=== PATIENT | female | born 1990 | race American Indian/Alaskan Native ===

== ENCOUNTER 2017-09-27 14:22 | Emergency (ER) | payer BC ==
[2017-09-27 16:05] LABS: Basophils % (Auto) 0.4 % (0.0-1.8); Eosinophils % (Auto) 0.5 % (0.0-4.3); Hematocrit 36.7 % (30.3-42.9); Hemoglobin 12.3 gm/dl (10.1-14.3); Lymphocytes # (Auto) 2.1 K/mm3 (1.2-5.4); Lymphocytes % (Auto) 31.9 % (13.4-35.0); Mean Corpuscular HGB Conc 34 % (30-34); Mean Corpuscular Hemoglobin 32 pg (28-32); Mean Corpuscular Volume 96 fl (79-97); Monocytes # (Auto) 0.7 K/mm3 (0.0-0.8); Monocytes % (Auto) 10.9 % (0.0-7.3); Platelet Count 299 K/mm3 (140-440); Red Blood Count 3.84 M/mm3 (3.65-5.03); Red Cell Distribution Width 13.8 % (13.2-15.2)
[2017-09-27 16:25] LABS: BUN/Creatinine Ratio 11; Blood Urea Nitrogen 10 mg/dL (7-17); Calcium 9.3 mg/dL (8.4-10.2); Hemolysis Index 0
[2017-09-27] MEDS ORDERED: K-DUR PO ONE (16:28)
[2017-09-27] MEDS ORDERED: SUDAFED 12 HR PO PRN (17:22)
[2017-09-27 18:02] LABS: Bilirubin,Urine NEG (Negative); Blood,Urine NEG (Negative); Calcium Oxalate Crystals,Urine 1+; Color,Urine Yellow (Yellow); Mucus,Urine 3+ /HPF; Nitrite,Urine NEG (Negative)
--- NOTE | 2017-09-27 18:07 | Emergency Department Report ---
ED Psych HPI - General Chief Complaint: Psych Stated Complaint: 1013 Time Seen by Provider: 09/27/17 16:27 Source: family Mode of arrival: Ambulatory Limitations: No Limitations - History of Present Illness Initial Comments: 27-year-old female with a past medical history of bipolar and PTSD presents to Hospital from her psychiatrist's office with a signed 1013. As for 1013 patient stated she will hurt herself because she does not exist and I as well be and was in a hospital last week for overdose attempt. According to her mother she walked out of the house and has not been taking care of her personal hygiene for several days. Patient states that she lives with her father. Patient has a lot of methodist delusions while in the ed. She denies suicidal or homicidal ideation to me when asked directly. She c/o chronic ongoing knee pain to patellar issues an ongoing sinus issues with nasal congestion been no reports of fever or cough. She denied hallucinations to me stating she only hears her own voice by as per 1013 patient had auditory and visual hallucinations of her parents exhibiting paranoia and a labile affect with tangential illogical thoughts. - Related Data Home Medications Medication Instructions Recorded Confirmed Last Taken FLUoxetine HCL [PROzac] 40 mg PO QDAY 09/27/17 09/27/17 Unknown lamoTRIgine [LaMICtal] 100 mg PO QDAY 09/27/17 09/27/17 Unknown traZODone [Desyrel] 100 mg PO QHS 09/27/17 09/27/17 Unknown Allergies Allergy/AdvReac Type Severity Reaction Status Date / Time No Known Allergies Allergy Unverified 09/27/17 14:37 ED Review of Systems ROS: Stated complaint: 1013 Other details as noted in HPI ED Past Medical Hx - Past Medical History Previous Medical History?: Yes Hx Psychiatric Treatment: Yes (Bipolar, PTSD (Dr. Giang)) - Surgical History Past Surgical History?: No - Social History Smoking Status: Never Smoker Substance Use Type: Alcohol, Marijuana - Medications Home Medications: Home Medications Medication Instructions Recorded Confirmed Last Taken Type FLUoxetine HCL [PROzac] 40 mg PO QDAY 09/27/17 09/27/17 Unknown History lamoTRIgine [LaMICtal] 100 mg PO QDAY 09/27/17 09/27/17 Unknown History traZODone [Desyrel] 100 mg PO QHS 09/27/17 09/27/17 Unknown History ED Physical Exam - General Limitations: Altered Mental Status - Other Other exam information: General: No limitations, patient is alert in no acute distress Head exam: Atraumatic, normocephalic Eyes exam: Normal appearance, pupils equal reactive to light, extraocular movements intact ENT: Moist mucous membrane, normal oropharynx no exudate Neck exam: Normal inspection, full range of motion, no meningismus nontender Respiratory exam: Clear to auscultation bilateral, no wheezes, rales, crackles Cardiovascular: Normal rate and rhythm, normal heart sounds Abdomen: Soft, nondistended, and nontender, with normal bowel sounds, no rebound, or guarding Extremity: Full range of motion normal inspection no deformity Back: Normal Inspection, full range of motion, no tenderness Neurologic: Alert, oriented x3, cranial nerves intact, no motor or sensory deficit Psychiatric: Tangential speech, methodist delusions Skin: Warm, dry, intact ED Course Vital Signs 09/27/17 09/27/17 14:52 17:21 Temperature 98.8 F Pulse Rate 104 H 84 Respiratory 18 Rate Blood Pressure 169/96 Blood Pressure 129/81 [Right] O2 Sat by Pulse 97 100 Oximetry - Reevaluation(s) Reevaluation #1: 09/27/17 18:05 Initial blood pressure was high as well as heart rate but repeat without any intervention shows improvement Reevaluation #2: 09/27/17 18:25 Patient is acutely agitated, paranoid, and uncooperative with staff. I requested that mental health professional to come to see patient prior to receiving Geodon. - Consultations Consultation #1: 09/27/17 18:11 Mental health consult ED Medical Decision Making - Lab Data Result diagrams: 09/27/17 15:30 09/27/17 15:30 - Medical Decision Making Psychosis and possible suicidal ideation 1013 and transfer forms signed Patient is medically cleared Patient required Geodon in the ED due to acute agitation We'll continue patient's reported home and pending psychiatric review Hypokalemia Potassium provided - Differential Diagnosis psychosis, med noncompliance, hallucinations Critical Care Time: No Critical care attestation.: If time is entered above; I have spent that time in minutes in the direct care of this critically ill patient, excluding procedure time. ED Disposition Clinical Impression: Psychosis, Delusions, Suicidal ideation, Hypokalemia, Medical clearance for psychiatric admission Disposition: [id number] PSY HOSP/PSY UNIT Is pt being admited?: No Condition: Stable Time of Disposition: 00:20 (awaiting acceptance)
[2017-09-27 18:08] LABS: Amphetamine Screen,Urine PRESUMPTIVE NEGATIVE; Benzodiazepines Screen,Urine PRESUMPTIVE NEGATIVE; Cocaine Screen,Urine PRESUMPTIVE NEGATIVE; Methadone Screen,Urine PRESUMPTIVE NEGATIVE
[2017-09-27 18:21] LABS: Cannabinoid Screen,Urine PRESUMPTIVE POSITIVE; Opiate Screen,Urine PRESUMPTIVE POSITIVE
[2017-09-27] MEDS ORDERED: GEODON IM ONE (18:25)
[2017-09-28] MEDS ORDERED: ALUM-MAG HYDROX-SIMETH 200-200-20MG/5ML PO PRN (00:21)
[2017-09-28] MEDS ORDERED: TYLENOL PO PRN (00:21)
[2017-09-28] MEDS ORDERED: MILK OF MAGNESIA PO PRN (00:21)
[2017-09-28 08:41] VITALS: BP 155/77
[2017-09-28] MEDS ORDERED: PROzac PO SCH (10:00)
[2017-09-28] MEDS ORDERED: NON-FORMULARY (Fluoxetine Hcl [Prozac] 40 MG) PO SCH (10:00)
[2017-09-28] MEDS ORDERED: LaMICtal PO SCH (10:00)
--- NOTE | 2017-09-28 12:23 | Consultation ---
History of Present Illness - Reason for Consult Consult date: 09/28/17 Reason for consult: Mental Health Evaluation Requesting physician: CALVIN WALTON - Chief Complaint Chief complaint: "I am Susu Krishna" - History of Present Psychiatric Illness 27 y.o. AA female presenting to [facility] for manic symptoms. Today the patient is calm, but hyper verbal and delusional during the assessment. The patient had to be redirected several time to keep her on topic. She stated having red spots on her skin along with hearing voices she stated she could not explain. Per my assessment, no red spots are visible on the patient's skin. She stated that her body is "breaking down" if she does not receive medical "attention" for the spots on her body. She stated not sleeping for 4 days. She stated not taking her medications in weeks. She did admit to suicidal thought a couple days ago, but denies them now. She denies HI's and VH's. She denies a poor appetite. She admitted to smoking marijuana recently, but denies excessive alcohol consumption (etoh). Medications and Allergies Allergies Allergy/AdvReac Type Severity Reaction Status Date / Time No Known Allergies Allergy Unverified 09/27/17 14:37 Home Medications Medication Instructions Recorded Confirmed Last Taken Type FLUoxetine HCL [PROzac] 40 mg PO QDAY 09/27/17 09/27/17 Unknown History lamoTRIgine [LaMICtal] 100 mg PO QDAY 09/27/17 09/27/17 Unknown History traZODone [Desyrel] 100 mg PO QHS 09/27/17 09/27/17 Unknown History Active Meds: Active Medications Acetaminophen (Tylenol) 650 mg PO Q4HR PRN PRN Reason: Pain MILD(1-3)/Fever >100.5/GREGORIO Last Admin: 09/28/17 03:50 Dose: 650 mg Al Hydrox/Mg Hydrox/Simethicone (Alum-Mag Hydrox-Simeth [id number]/5ml) 30 ml PO Q4HR PRN PRN Reason: Indigestion Fluoxetine HCl (Prozac) 40 mg PO QDAY GIOVANNI Magnesium Hydroxide (Milk Of Magnesia) 30 ml PO Q12HR PRN PRN Reason: Constipation Trazodone HCl (Desyrel) 100 mg PO QHS [facility] Past psychiatric history - Past Medical History Past Medical History: No medical history Past Surgical History: No surgical history - past Psychiatric treatment and history Psych: Bipolar psychiatric treatment history: Multiple in patient psy settings. Denies a fam psy hx. - Social History Social history: lives with family Mental Status Exam - Vital signs Last Vital Signs Temp 98.3 F 09/28/17 08:38 Pulse 74 09/28/17 08:38 Resp 20 09/28/17 08:41 BP 155/77 09/28/17 08:38 Pulse Ox 100 09/28/17 08:41 - Exam Narrative exam: MSE: Appearance: calm Behavior: poor eye contact Speech: regular rate and tone, hyper verbal Mood: "okay" Affect: labile Thought Process: tangential Thought Content: denies SI/HI's and VH's, delusional Motor Activity: ambulatory Cognition: A/O x 3 Insight: poor Judgment: poor Results Result Diagrams: 09/27/17 15:30 09/27/17 15:30 Abnormal lab results 09/27/17 09/27/17 09/27/17 Range/Units 15:30 15:30 15:30 [place] % (Auto) 10.9 H (0.0-7.3) % Potassium 3.2 L (3.6-5.0) mmol/L Glucose 105 H (65-100) mg/dL Ur Specific [place] (1.003-1.030) Urine WBC (Auto) (0.0-6.0) /HPF U Epithel Cells (Auto) (0-13.0) /HPF Salicylates < 0.3 L (2.8-20.0) mg/dL 09/27/17 Range/Units 17:32 [place] % (Auto) (0.0-7.3) % Potassium (3.6-5.0) mmol/L Glucose (65-100) mg/dL Ur Specific [place] 1.036 H (1.003-1.030) Urine WBC (Auto) 9.0 H (0.0-6.0) /HPF U Epithel Cells (Auto) 19.0 H (0-13.0) /HPF Salicylates (2.8-20.0) mg/dL All other labs normal. Assessment and Plan Assessment and plan: Impression: Bipolar DO with psychosis. Today the patient is calm, but hyper verbal and delusional during the assessment. DDx: R/O Schizophrenia, R/O Schizoaffective DO Recommendation/Plan: Continue 1013 with placement to [place] today.
[2017-09-28] MEDS ORDERED: DESYREL PO SCH (22:00)
== END 2017-09-28 13:21 ==
LOC: ED 14:22
DX: F29 Unspecified psychosis not due to a substance or known physiological condition (principal); R45.851 Suicidal ideations; F22 Delusional disorders; E87.6 Hypokalemia; F31.9 Bipolar disorder, unspecified; F43.10 Post-traumatic stress disorder, unspecified
CPT/HCPCS: 36415; 80048; 80307; 81001; 84703; 85025; 96372; 99283; G0480; J3486; 80320